=== PATIENT | male | born 1975 | race African-American/Black ===

== ENCOUNTER → 2024-05-19 11:47 | Outpatient (REF) | payer OTHER, SELFPAY ==
[2024-05-19 13:20] LABS: Hemoglobin 13.8 g/dL (13.0-18.0); Mean Corp Hgb Conc. 33.7 g/dL (33.0-37.0); Mean Corpuscular Volume 89.1 fL (80.0-94.0); Mean Platelet Volume 10.4 fL (7.4-10.4); Platelet Count 239 10^3/uL (130-400); Red Cell Dist. Width 13.4 % (11.5-14.5); White Blood Cell Count 3.4 10^3/uL (4.8-10.8)
[2024-05-19 13:47] LABS: ALT (SGPT) 36 U/L (0-50); AST (SGOT) 29 U/L (17-59); Alkaline Phosphatase 74 U/L (38-126); Blood Urea Nitrogen 15 mg/dl (9-20); Calcium 10.3 mg/dl (8.4-10.2); Carbon Dioxide 26 mmol/L (22-30); Chloride 108 mmol/L (98-107); Glucose 85 mg/dl (70-99); HDL Cholesterol 49 mg/dl; LDL Cholesterol, Calculated 141 mg/dl; Potassium 5.3 mmol/L (3.5-5.1); Sodium 144 mmol/L (135-145); Total Bilirubin 1.3 mg/dl (0.2-1.3); Total Cholesterol 213 mg/dl (50-199); Total Protein 8.2 g/dl (6.3-8.2); Triglyceride 116 mg/dl (10-149); Very Low Density Lipoprotein 23 mg/dl (0-30); eGFR > 60.00
[2024-05-19 14:03] LABS: Vitamin D, 25-OH*** 34.9 ng/mL (30-80)
[2024-05-19 14:16] LABS: TSH Reflex To Free T4 1.41 uIU/ml (0.47-4.68)
[2024-05-21 18:07] LABS: FIT-Fecal Occult Blood Interp Positive
== END ==
LOC: CLINIC 11:47
PROVIDERS: ATTENDING PHYSICIAN Nurse Practitioner Adult Health
DX: Z00.00 Encounter for general adult medical examination without abnormal findings (principal); E55.9 Vitamin D deficiency, unspecified; Z12.11 Encounter for screening for malignant neoplasm of colon
CPT/HCPCS: 36415; 80053; 80061; 82306; 83520; 84443; 85027

== ENCOUNTER → 2024-06-03 15:37 | Outpatient (REF) | payer OTHER, SELFPAY | LOC: CLINIC 15:37 | PROVIDERS: ATTENDING PHYSICIAN Internal Medicine Gastroenterology | DX: K59.09 Other constipation (principal) | CPT/HCPCS: 74018 ==

== ENCOUNTER 2024-06-25 06:17 | Day surgery (SDC) | payer OTHER, SELFPAY | END 2024-06-25 12:50 | disposition home or self-care (01) | LOC: GI 06:17 | PROVIDERS: ATTENDING PHYSICIAN Internal Medicine Gastroenterology | DX: K62.5 Hemorrhage of anus and rectum (principal); K64.8 Other hemorrhoids; K63.89 Other specified diseases of intestine | CPT/HCPCS: 45378 ==